=== PATIENT | male | born 1980 | race Caucasian/White ===

== ENCOUNTER 2017-10-10 10:46 | Emergency (ER) | payer MEDICAID ==
[~2017-10-10] VITALS: Ht 188 cm; Wt 95.3 kg
[2017-10-10 10:58] VITALS: BP 120/79
[2017-10-10] MEDS ORDERED: TETANUS-DIPTH-ACEL PERTUSSIS 0.5ML SYRG IM ONE (11:30)
[2017-10-10] MEDS ORDERED: LIDOCAINE 1% (LOCAL ANESTH.) PF 5ml SDV IJ ONE (11:30)
[2017-10-10] MEDS ORDERED: LIDOCAINE 1% HCL (LOCAL ANESTH.) INJ 20ML MDV ONE (11:33)
== END 2017-10-10 12:28 | disposition home or self-care (01) ==
LOC: ER 10:46
DX: S61.012A Laceration without foreign body of left thumb without damage to nail, initial encounter (principal); Z88.0 Allergy status to penicillin; X58.XXXA Exposure to other specified factors, initial encounter; Y93.89 Activity, other specified; Y99.8 Other external cause status; Y92.89 Other specified places as the place of occurrence of the external cause
CPT/HCPCS: 12002; 73130; 90471; 90715; 99284; J2001

== ENCOUNTER 2018-07-01 09:23 | Emergency (ER) | payer MEDICAID ==
[~2018-07-01] VITALS: Ht 185.4 cm; Wt 102.1 kg
[2018-07-01 09:49] VITALS: BP 131/92
== END 2018-07-01 11:19 | disposition home or self-care (01) ==
LOC: ER 09:23
DX: H66.92 Otitis media, unspecified, left ear (principal); G44.209 Tension-type headache, unspecified, not intractable; Z88.0 Allergy status to penicillin
CPT/HCPCS: 70450

== ENCOUNTER 2024-12-02 08:08 | Emergency (ER) | payer MEDICAID ==
[~2024-12-02] VITALS: Ht 185.4 cm; Wt 104.5 kg
[2024-12-02 08:25] VITALS: PULSE 120; RESP 22; TEMP 98.5; O2SAT 98
--- NOTE | 2024-12-02 08:48 | ED.PDOC ---
GI ASSESSMENT HPI Comments This is a 44 year old male GURMEET presenting to the ED with chief complaint of ETOH withdrawal. Patient reports that his last drink was vodka at 2:30am this morning. Patient relays that he is a daily heavy drinker. Patient states he has been experiencing nausea with associated vomiting and palpitations. Patient denies any diarrhea, abdominal pain, chest pain, SOB, dizziness, headache, fever, or chills. Chief Complaint: Nausea/Vomiting Time Seen by MD: 08:47 Primary Care Provider: KADE Reviewed Notes: Nurses Notes, Case Checker Notes, Medications, Allergies Allergies: Coded Allergies: Penicillins (Unverified Allergy, Unknown, 10/10/17) Information Source: Patient, Emergency Med Personnel Mode of Arrival: EMS Timing: Hours Duration: Since onset Prehospital treatment: None Vomitus: Watery Stool: Normal Severity: Moderate Recent: Ingestion of ETOH Recent Hx of: None Associated sign and symptoms: Nausea, Vomiting Past Medical History PAST MEDICAL HISTORY: Denies Surgical History: Denies all surgeries Family History Family History: Unknown Social History Smoker: Cigarettes Alcohol: Heavy Drugs: Denies Drug Use Lives In: Home Constitutional: denies: chills, diaphoresis, fatigue, fever, malaise, sweats, weakness, others EENTM: denies: blurred vision, double vision, ear bleeding, ear discharge, ear drainage, ear pain, ear ringing, eye pain, eye redness, hearing loss, mouth pain, mouth swelling, nasal discharge, nose bleeding, nose congestion, nose pain, photophobia, tearing, throat pain, throat swelling, voice changes, others Respiratory: denies: cough, hemoptysis, orthopnea, SOB at rest, shortness of breath, SOB with excertion, stridor, wheezing, others Cardiovascular: reports: palpitations; denies: chest pain, dizzy spells, diaphoresis, Dyspnea on exertion, edema, irregular heart beat, left arm pain, lightheadedness, PND, syncope, others Gastrointestinal: reports: nausea, vomiting; denies: abdomen distended, abdominal pain, blood streaked bowels, constipated, diarrhea, dysphagia, difficulty swallowing, hematemesis, melena, poor appetite, poor fluid intake, rectal bleeding, rectal pain, others Genitourinary: denies: burning, dysuria, flank pain, frequency, hematuria, incontinence, penile discharge, penile sore, pain, testicle pain, testicle swelling, urgency, others Neurological: denies: dizziness, fainting, headache, left sided numbness, left sided weakness, numbness, paresthesia, pre-existing deficit, right sided numbness, right sided weakness, seizure, speech problems, tingling, tremors, weakness, others Musculoskeletal: denies: back pain, gout, joint pain, joint swelling, muscle pain, muscle stiffness, neck pain, others Integumetry: denies: bruises, change in color, change in hair/nails, dryness, laceration, lesions, lumps, rash, wounds, others Allergic/Immunocompromised: denies: Difficulty Healing, Frequent Infections, Hives, Itching, others Hematologic/Lymphatic: denies: anemia, blood clots, easy bleeding, easy bruising, swollen glands, others Endocrine: denies: excessive hunger, excessive sweating, excessive thirst, excessive urination, flushing, intolerance to cold, intolerance to heat, unexplained weight gain, unexplained weight loss, others Psychiatric: denies: anxiety, bipolar disorder, depression, hopeless, panic disorder, schizophrenia, sleepless, suicidal, others All Other Systems: Reviewed and Negative Physical Exam General Appearance: Moderate Distress, Normal HEENT: Normal ENT Inspection, Pharynx Normal, TMs Normal Neck: Full Range of Motion, Non-Tender, Normal, Normal Inspection Respiratory: Chest Non-Tender, Lungs Clear, No Accessory Muscle Use, No Respiratory Distress, Normal Breath Sounds Cardiovascular: No Edema, No JVD, No Murmur, No Gallop, Normal Peripheral Pulses, Regular Rate/Rhythm Breast Exam: Deferred Gastrointestinal: No Organomegaly, Non Tender, No Pulsatile Mass, Normal Bowel Sounds, Soft Genitalia: Deferred Pelvic: Deferred Rectal: Deferred Extremities: No calf tenderness, Normal capillary refill, Normal inspection, Normal range of motion, Non-tender, No pedal edema Musculoskeletal : Apperance: Normal 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 Was a procedure done?: No GI differential Dx Differential Diagnosis: Constipation, Diverticular disease, Esophagitis, Gastritis/PUD, Gastroenteritis X-Ray, Labs, Meds, VS Vital Signs Date Time Temp Pulse Resp B/P (MAP) Pulse Ox O2 Delivery O2 Flow Rate FiO2 12/02/24 11:40 97 20 139/91 (107) 94 12/02/24 10:31 108 20 128/98 (108) 95 12/02/24 08:25 98.5 120 22 145/94 (111) 98 98.5 12/02/24 08:25 120 22 98 Room Air* 0 21 12/02/24 08:24 98.2 124 18 161/111 95 98.2 12/02/24 08:19 121 Lab Test 12/02/24 09:12 Range/Units Sodium Level 138 136-145 mmol/L Potassium Level 3.3 L 3.5-5.1 mmol/L Chloride Level 101 98-107 mmol/L Carbon Dioxide Level 23 20-31 mmol/L Anion Gap 14 5-15 Blood Urea Nitrogen 7 L 9-23 mg/dL Creatinine 0.78 0.700-1.30 mg/dL Glomerular Filtration Rate Calc 113 >90 mL/min BUN/Creatinine Ratio 9.0 L 10.0-20.0 Serum Glucose 123 H 74-106 mg/dL Calcium Level 9.8 8.7-10.4 mg/dL Plasma/Serum Blood Alcohol 11.8 H <10 mg/dL Current Medications Medications (Trade) Dose Ordered Sig/Ben Route Start Time Stop Time Status Last Admin Sodium Chloride 1,000 ml @ 1,000 mls/hr Q1H ONCE IV 12/02/24 08:45 12/02/24 09:44 DC 12/02/24 09:04 Thiamine HCl 100 mg ONCE ONCE IV 12/02/24 08:45 12/02/24 08:46 DC 12/02/24 09:05 Lorazepam (Ativan Inj) 1 mg ONCE ONCE IV 12/02/24 08:45 12/02/24 08:46 DC 12/02/24 09:04 Ondansetron HCl (Zofran) 4 mg ONCE ONCE IV 12/02/24 09:00 12/02/24 09:01 DC 12/02/24 09:04 Potassium Bicarbonate (Klor-Con/Ef) 25 meq ONCE ONCE PO 12/02/24 10:00 12/02/24 10:01 DC 12/02/24 11:37 Patient alert. 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 Blood alcohol level is slightly elevated. Potassium slightly low. Establish intravenous access. Was given fluids. Blood pressure elevated. No leg swelling. No shortness a breath. No chest pain. Was given thiamine. Counseled patient on effects of drinking for 15 minutes. Explained to the patient. Was told to follow up with his primary care physician. Was told to come back if there is any problem. Time of 1ST Reevaluation: 09:47 Reevaluation 1ST: Unchanged Patient Education/Counseling: Diagnosis, Treatment Family Education/Counseling: No Family Present SEPSIS Sepsis Screen Date sepsis recognized/suspect: Dec 02, 2024 Time Sepsis recognized/suspect: 814 Recent Procedure: No On Antibiotic Therapy: No Respiratory Rate >20: No Heart Rate >90: Yes Temp<36 C (96.8 F) or >38.3 C: No SBP <90 or MAP <65 mmHG: No New Acute Mental Status Change: No Is the patient on CPAP, BIPAP,: No Physician Orders Electrocardigram (12/02/24 08:45) Vital Signs Date Time Temp Pulse Resp B/P (MAP) Pulse Ox O2 Delivery O2 Flow Rate FiO2 12/02/24 11:40 97 20 139/91 (107) 94 12/02/24 10:31 108 20 128/98 (108) 95 12/02/24 08:25 98.5 120 22 145/94 (111) 98 98.5 12/02/24 08:25 120 22 98 Room Air* 0 21 12/02/24 08:24 98.2 124 18 161/111 95 98.2 12/02/24 08:19 121 Medications Medications Dose Ordered Sig/Ben Route Start Time Stop Time Status Last Admin Dose Admin Lorazepam 1 mg ONCE ONCE IV 12/02/24 08:45 12/02/24 08:46 DC 12/02/24 09:04 Ondansetron HCl 4 mg ONCE ONCE IV 12/02/24 09:00 12/02/24 09:01 DC 12/02/24 09:04 Potassium Bicarbonate 25 meq ONCE ONCE PO 12/02/24 10:00 12/02/24 10:01 DC 12/02/24 11:37 Sodium Chloride 1,000 ml @ 1,000 mls/hr Q1H ONCE IV 12/02/24 08:45 12/02/24 09:44 DC 12/02/24 09:04 Thiamine HCl 100 mg ONCE ONCE IV 12/02/24 08:45 12/02/24 08:46 DC 12/02/24 09:05 Departure 1 Departure Time of Disposition: 09:59 Impression: Primary Impression: Hypokalemia Additional Impression: Alcohol abuse Disposition: 01 HOME / SELF CARE / HOMELESS Condition: Good Discharged With: Self Critical Care Note Critical Care Time?: No Stability Stability form required: No Heart Score Heart Score: Heart Score Response (Comments) Value History N/A 0 EKG N/A 0 Age N/A 0 Risk Factors N/A 0 Troponin N/A 0 Total 0 I personally scribed for DERRICK ALEXIS MD ([email or web address]) on 12/02/24 at 08:48. Electronically submitted by Taran Mancilla ([email or web address]). DERRICK ALEXIS MD Dec 02, 2024 08:48
[2024-12-02] MEDS: SODIUM CHLORIDE 0.9% 1,000 ML IV ONE ×2 (09:04→11:04)
[2024-12-02] MEDS: ONDANSETRON HCL 4 MG/2 ML VIAL IV ONE (09:04)
[2024-12-02] MEDS: LORazepam 2MG/ML-1ML VIAL IV ONE (09:04)
[2024-12-02] MEDS: THIAMINE 100mg/ml INJ (200mg/2ml VIAL) IV ONE (09:05)
[2024-12-02 09:33] LABS: Chloride 101 mmol/L (98-107); Sodium 138 mmol/L (136-145)
[2024-12-02 09:34] LABS: Anion Gap 14 (5-15); Calcium 9.8 mg/dL (8.7-10.4); Carbon Dioxide 23 mmol/L (20-31)
[2024-12-02 09:35] LABS: Potassium 3.3 mmol/L (3.5-5.1)
[2024-12-02 09:39] LABS: BUN/Creatinine Ratio 9.0 (10.0-20.0)
[2024-12-02 09:41] LABS: Blood Urea Nitrogen 7 mg/dL (9-23); Glucose 123 mg/dL (74-106)
[2024-12-02] MEDS: POTASSIUM EFFERVESENT TAB 25 MEQ PO ONE (11:37)
[2024-12-02 11:40] VITALS: BP 139/91; PULSE 97; RESP 20; O2SAT 94
--- NOTE | 2024-12-02 18:27 | ECG ---
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
== END 2024-12-02 11:47 | disposition home or self-care (01) ==
LOC: EDBD 08:08 → ER 08:08
DX: E87.6 Hypokalemia (principal); F10.10 Alcohol abuse, uncomplicated; F17.210 Nicotine dependence, cigarettes, uncomplicated; Z88.0 Allergy status to penicillin; Y90.9 Presence of alcohol in blood, level not specified
CPT/HCPCS: 36415; 80048; 80320; 93005; 96361; 96374; 96375; 99284; J2060; J2405; J3411; J7030